=== PATIENT | male | born 1960 | race Caucasian/White ===

== ENCOUNTER 2016-12-26 08:25 | Day surgery (SDC) | payer OTHER ==
[~2016-12-26] VITALS: Ht 182.9 cm; Wt 80.0 kg
[~2016-12-26 08:25] MED LIST: ACET325C PO; CITA10TA9 PO; ERGO2000 PO; METH5TAB PO; MULT-666 PO; [UNRECOGNIZED DRUG - OTHER] PO
[2016-12-26] MEDS ORDERED: MethylprednisoLONE Depot 80 mg/mL Inj ONE (08:26)
[2016-12-26] MEDS ORDERED: Iohexol 240 mg/mL 10 mL Inj ONE (08:26)
[2016-12-26 09:27] VITALS: BP 128/81; PULSE 76; RESP 14; O2SAT 98
[2016-12-26 10:01] VITALS: BP 127/82; PULSE 82; RESP 14; O2SAT 100
[2016-12-26 10:05] VITALS: BP 124/82; PULSE 70; RESP 14; O2SAT 99
[2016-12-26 10:09] VITALS: BP 127/83; PULSE 70; RESP 16; O2SAT 99
--- NOTE | 2016-12-26 14:59 | PCM.PROC ---
Procedure Note Date of Service: December 26, 2016 Pre Procedure Diagnosis: PROCEDURE: Cervical interlaminar epidural steroid injection. LEFT paramedian C6-C7 PRE-PROCEDURE DIAGNOSIS: Cervical radiculopathy POST-PROCEDURE DIAGNOSIS: same INDICATION: 56-year-old patient with LEFT arm pain consistent with cervical radiculopathy PERFORMED BY: Sekou Villagomez MD DESCRIPTION OF PROCEDURE: Patient was met in the holding area. Consent was signed, site was confirmed and all questions were answered. Patient was taken to the procedure suite and placed prone on the procedure table with neck in a flexed position. The proper interspace was identified using fluoroscopic guidance. Local anesthesia with 1% lidocaine was used to anesthetize the skin and subcutaneous tissues. A 20-gauge Touhy epidural needle was advanced under tunnel view vision using direct fluoroscopic guidance towards the inferior lamina using a LEFT paramedian approach. A contralateral oblique view was used to gauge depth after the needle was walked off the lamina. After loss of resistance was obtained using a loss of resistance syringe, radiopaque contrast was injected under live fluoroscopic view which confirmed epidural placement as well as the absence of intravascular uptake. 80 mg Depo-Medrol was injected without difficulty. ANESTHESIA: Local. EBL: None. No Blood Products Used COMPLICATIONS: None SPECIMENS: None POST-PROCEDURE DISPOSITION: Patient was returned to the holding area in stable condition. They were discharged home when all discharge criteria were met. Evaluation/Physical Exam before discharge revealed: No Neurologic Change DISCHARGE MEDICATIONS: None FOLLOW UP: Return to clinic in 4 weeks. Sekou Villagomez MD * Pain Management * Anesthesiology (Dictated using voice-recognition software) Sekou Villagomez MD December 26, 2016 14:59
== END 2016-12-26 23:59 | disposition home or self-care (01) ==
LOC: END 08:25
PROVIDERS: ATTEND Anesthesiology Pain Medicine
DX: M54.12 Radiculopathy, cervical region (principal)
CPT/HCPCS: 62321; J1040